=== PATIENT | male | born 1965 | race Two or more races ===

== ENCOUNTER 2019-08-13 16:39 | Emergency (ER) | payer OTHER, MEDICAID ==
[~2019-08-13] VITALS: Ht 170.2 cm; Wt 72.6 kg
[2019-08-13 16:39] VITALS: BP 129/74
[~2019-08-13 16:39] MED LIST: NKM
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
[2019-08-13] MEDS ORDERED: Bacitracin Oint UD TOPIC ONE (17:00)
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
--- NOTE | 2019-08-13 17:31 | NUR ---
ED Nurse Note: Xray at bedside.
[2019-08-13 17:45] VITALS: BP 129/74
--- NOTE | 2019-08-13 17:45 | NUR ---
ED Nurse Note: Pt cleared by ERMD for discharge. DC instructions was given and explained to pt and verbalized understanding of teachings. All medical deviecs such as ID band removed. Pt is AAO x4, ambulatory and left with all personal belongings. Accompanied by [employer], pt is under custody.
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
== END 2019-08-13 17:45 ==
LOC: EDBD 16:39 → EMR 16:50
DX: S90.32XA Contusion of left foot, initial encounter (principal); S93.622A Sprain of tarsometatarsal ligament of left foot, initial encounter; R45.6 Violent behavior; S30.811A Abrasion of abdominal wall, initial encounter; Y35.833A Legal intervention involving a conducted energy device, suspect injured, initial encounter; Y92.9 Unspecified place or not applicable
CPT/HCPCS: 99283